=== PATIENT | female | born 1995 | race Hispanic/Latino ===

== ENCOUNTER 2023-12-31 16:52 | Emergency (ER) | payer BC, MEDICAID ==
[~2023-12-31] VITALS: Ht 152.4 cm; Wt 75.7 kg
[2023-12-31 17:22] LABS: RAPID GROUP A STREP negative (NEGATIVE)
[2023-12-31 17:30] VITALS: PULSE 108; RESP 20
[2023-12-31] MEDS: ALBUTEROL 0.083% 2.5 MG/3 ML INH IH ONE ×2 (17:30→20:43)
[2023-12-31] MEDS: BUDESONIDE 0.5 MG/2 ML INH IH SCH (17:30)
[2023-12-31 17:31] LABS: SARS-CoV-2, RNA, NAAT NEGATIVE SARS CoV-2 (NEGATIVE)
[2023-12-31 17:33] VITALS: PULSE 85; RESP 20
[2023-12-31 17:38] LABS: INFLUENZA TYPE A Negative For Type A (NEGATIVE); INFLUENZA TYPE B Negative For Type B (NEGATIVE)
[2023-12-31] MEDS: DEXAMETHASONE SOD PHOSPHATE 4 MG/ML 1ML VIAL IM ONE (18:53)
[2023-12-31 20:08] VITALS: BP 104/65; O2SAT 95
[2023-12-31] MEDS ORDERED: AUD IH (20:08)
[2023-12-31] MEDS ORDERED: BUDE0.5A8 IH (20:08)
[2023-12-31 20:43] VITALS: PULSE 96; RESP 20
== END 2023-12-31 20:59 | disposition home or self-care (01) ==
LOC: EDH 16:52
DX: O99.512 Diseases of the respiratory system complicating pregnancy, second trimester (principal); J45.909 Unspecified asthma, uncomplicated; Z3A.18 18 weeks gestation of pregnancy; Z20.822 Contact with and (suspected) exposure to COVID-19
CPT/HCPCS: 99284; 87635; 87880; 87804 ×2; 96372; 94640 ×3; J1100